=== PATIENT | male | born 1975 | race Caucasian/White ===

== ENCOUNTER → 2020-07-24 | Outpatient (CLI) | payer BC ==
--- NOTE | 2020-07-24 16:30 | CARD ---
MR#: [id number] Date of Study: 07/24/2020 Ordering Physician: JORGE ALBERTO CUNNINGHAM, Referring Physician: JORGE ALBERTO CUNNINGHAM, Tech: Altagracia Nichols RDCS APPROVED REPORT INDICATION Chest Pain Reason : Patient complained of pain PROCEDURE The patient underwent an Exercise Stress Test using the Clay Protocol. Blood pressure, heart rate, a nd EKG were monitored. An Echocardiogram was performed by prosthetics lab technician in four stages in quad fashion. At peak stress four se lected images were obtained and placed side by side with resting images for comparison. STRESS ECHO FINDINGS The resting Echocardiogram showed normal left ventricular systolic contractility with an estimated Ej ection Fraction of about 60 %. The Resting Echocardiogram showed normal augmentation of myocardial wall segments using a 16 segment model. The Stress Echocardiogram showed normal augmentation of myocardial wall segments using a 16 segment m trav. The Stress Echocardiogram left ventricular systolic contractility has an estimated Ejection Fraction of about 80%. Test Type: Exercise Stress Nurse/Tech: Maggy Santo RN Test Indications: Chest pain Cardiac History and Allergies: Family history Medications: see EMR Medical History: see EMR Resting ECG: SR Resting Heart Rate: 78 bpm Resting Blood Pressure: 136/74mmHg Pretest Chest Pain: No chest pain Nurse/Tech Notes S1,S2 and lungs clear to auscultation. Patient stated he has had a stressful last couple of months ( mother , job etc.). Stress Symptoms Chest pain and fatigue Chest pain typical of angina occurred (Severity 5/10 , 2 min duration). POST EXERCISE Reason for Termination: Reached target heart rate, Fatigue Target HR: Yes Max HR: 181 bpm 102% of Maximum Predicted HR: 178 bpm Exercise duration: 13:08 min:sec, 5 Stage Exercise capacity: 14.8METs Max Blood Pressure: 181/76mmHg Blood Pressure response to exercise: Normal blood pressure response during stress. Heart Rate response to exercise: WNL Chest Pain: Yes. at the end of study patient complained of 5/10 chest pain in midsternum which resolv ed by end of recovery period Arrhythmia: No. ST Change: No. INTERPRETATION Stress EKG Conclusion: Baseline EKG showed sinus rhythm. No ischemic changes at peak stress. No arr hythmias. Preliminary Notification Critical Value: No <Conclusion> Treadmill exercise stress echocardiogram did not show any evidence of ischemia or infarct. Normal left ventricle systolic function with ejection fraction estimated at 60%. Patient had good activity tolerance. Low risk for cardiac events. Signed by : Jorge Alberto Cunningham, Electronically Approved : 07/24/2020 16:29:51
== END ==
LOC: ECHO 12:40
PROVIDERS: ATTEND Internal Medicine Cardiovascular Disease
DX: R07.89 Other chest pain (principal)
CPT/HCPCS: 93017; 93350